=== PATIENT | female | born 1990 | race American Indian/Alaskan Native ===

== ENCOUNTER 2021-06-18 02:31 | Emergency (ER) | payer OTHER ==
[2021-06-18 03:07] VITALS: BP 116/78
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
== END 2021-06-18 03:30 | disposition home or self-care (01) ==
LOC: ED 02:31
DX: Z02.79 Encounter for issue of other medical certificate (principal); V89.2XXA Person injured in unspecified motor-vehicle accident, traffic, initial encounter; Y93.89 Activity, other specified; Y92.89 Other specified places as the place of occurrence of the external cause; Y99.8 Other external cause status
CPT/HCPCS: 99282